=== PATIENT | male | born 1960 | race Caucasian/White ===

== ENCOUNTER 2019-05-06 08:32 | Day surgery (SDC) | payer OTHER ==
[2019-05-04 08:21] VITALS: BMI 38.0
[~2019-05-06 08:32] MED LIST: LACTATED RINGERS 1,000 ML IV SCH; LIDOCAINE 1% 20 ML VIAL (10MG/ML) FOR IV START INTRADERMA PRN
[2019-05-06 09:02] LABS: Glucose,Whole Blood 126 mg/dL (75-99)
[2019-05-06 09:11] VITALS: TEMP 98.3
[2019-05-06] MEDS ORDERED: PROPOFOL 10 MG/ML 20 ML VIAL IV ONE (09:11)
--- NOTE | 2019-05-06 09:12 | P.GSHP ---
History of Present Illness H&P Date: 05/06/19 Chief Complaint: Colon cancer screening Patient today for screening colonoscopy. No bowel related complaints. No family history of colon cancer. Last colonoscopy 2007. That was normal Past Medical History Past Medical History: Diabetes Mellitus, Hyperlipidemia, Hypertension History of Any Multi-Drug Resistant Organisms: None Reported Past Surgical History: Hernia Repair Additional Past Surgical History / Comment(s): COLONOSCOPY Past Anesthesia/Blood Transfusion Reactions: No Reported Reaction Smoking Status: Never smoker - Past Family History Sister(s) Family Medical History: Cancer Medications and Allergies Home Medications Medication Instructions Recorded Confirmed Type Ascorbic Acid [Vitamin C] 500 mg PO DAILY 05/04/19 05/06/19 History Aspirin [Adult Low Dose Aspirin EC] 81 mg PO DAILY 05/04/19 05/06/19 History Cinnamon Bark [Cinnamon] 1,000 mg PO DAILY 05/04/19 05/06/19 History Lisinopril [Zestril] 10 mg PO DAILY 05/04/19 05/06/19 History Multivit-Min/Folic/Vit K/Lycop 1 tab PO DAILY 05/04/19 05/06/19 History [Men's Multivitamin Tablet] Simvastatin [Zocor] 20 mg PO DAILY 05/04/19 05/06/19 History metFORMIN HCL [Glucophage] 500 mg PO BID 05/04/19 05/06/19 History Allergies Allergy/AdvReac Type Severity Reaction Status Date / Time No Known Allergies Allergy Verified 05/06/19 08:47 Surgical - Exam Vital Signs Temp Pulse Resp BP Pulse Ox 98.3 F 82 16 167/93 97 05/06/19 08:50 05/06/19 08:50 05/06/19 08:50 05/06/19 08:50 05/06/19 08:50 Physical exam: General: Well-developed, well-nourished HEENT: Normocephalic, sclerae nonicteric Abdomen: Nontender, nondistended Extremities: No edema Neuro: Alert and oriented Results - Labs Abnormal Lab Results - Last 24 Hours (Table) 05/06/19 Range/Units 09:00 POC Glucose (mg/dL) 126 H (75-99) mg/dL Assessment and Plan (1) Colon cancer screening Narrative/Plan: Will proceed with colonoscopy at this time Current Visit: Yes Status: Acute Code(s): Z12.11 - ENCOUNTER FOR SCREENING FOR MALIGNANT NEOPLASM OF COLON SNOMED Code(s): 394267343
--- NOTE | 2019-05-06 09:38 | P.PCN ---
Date of Procedure: 05/06/19 Procedure(s) Performed: PREOPERATIVE DIAGNOSIS: Colon cancer screening POSTOPERATIVE DIAGNOSIS: Diverticulosis PROCEDURE: Colonoscopy ANESTHESIA: MAC SURGEON: Juan Collins M.D. SPECIMENS: None ENDOSCOPIC PROCEDURE: The patient was placed on the endoscopy table in the left decubitus position. The Olympus colonoscope was inserted into the anus and passed under direct visualization to the base of the cecum. The appendiceal orifice was visualized. From that point the scope was slowly withdrawn inspe cting all surfaces carefully. There were no neoplastic inflammatory or polypoid lesions throughout the cecum, ascending, transverse, descending, sigmoid and rectum. There was moderate diverticulosis noted throughout the colon. Digital rectal examination was normal. The patient was taken to the recovery room in stable condition per anesthesia guidelines. RECOMMENDATIONS: Increase fiber. Follow colonoscopy 10 years
[2019-05-06 09:43] VITALS: RESP 18
[2019-05-06 10:18] VITALS: BP 128/78; PULSE 67
== END 2019-05-06 10:10 | disposition home or self-care (01) ==
LOC: ORWHC2ENDO 08:32
PROVIDERS: ATTEND Surgery
DX: Z12.11 Encounter for screening for malignant neoplasm of colon (principal); K57.30 Diverticulosis of large intestine without perforation or abscess without bleeding; E11.9 Type 2 diabetes mellitus without complications; E78.5 Hyperlipidemia, unspecified; I10 Essential (primary) hypertension; Z98.890 Other specified postprocedural states; Z79.82 Long term (current) use of aspirin; Z79.84 Long term (current) use of oral hypoglycemic drugs; Z80.9 Family history of malignant neoplasm, unspecified
CPT/HCPCS: G0121; J2704; 45378